=== PATIENT | female | born 1990 | race African-American/Black ===

== ENCOUNTER 2017-07-10 07:12 | Day surgery (SDC) | payer MEDICARE ==
[2017-07-10] MEDS ORDERED: RENVELA800 MG PO (07:44)
[2017-07-10] MEDS ORDERED: LASIX80 MG PO (07:45)
[2017-07-10 08:07] VITALS: BMI 65.4
[2017-07-10 08:18] LABS: BASOPHILS 0.5 % (0-2); EOSINOPHILS 1.3 % (0-7); HEMATOCRIT 33.9 % (36.0-48.0); HEMOGLOBIN 10.4 g/dL (12-16); IMMATURE GRANULOCYTES 0.4 % (0-5); LYMPHOCYTES 32.7 % (15-50); MCH 29.8 pg (26.0-34.0); MCHC 30.7 g/dL (31.0-37.0); MCV 97.1 fL (80.0-100.0); MEAN PLATELET VOLUME 10.3 fL (7.4-10.4); MONOCYTES 7.5 % (2-11); NEUTROPHILS 57.6 % (40-80); PLATELET COUNT 279 10x3/uL (130-400); RBC 3.49 10x6/uL (4.00-5.40); RDW 18.8 % (11.5-14.5); WBC 10.9 10x3/uL (4.8-10.8)
[2017-07-10 08:26] LABS: APTT 27.4 SECONDS (22.8-39.4); INR 1.01 (0.85-1.17); PROTIME 13.1 SECONDS (11.6-15.0)
[2017-07-10 08:29] LABS: ANION GAP 14.3 mmol/L (8-16); CALCIUM 9.9 mg/dL (8.5-10.1); CARBON DIOXIDE 27.4 mmol/L (21.0-32.0); CREATININE - SERUM 8.1 mg/dL (0.6-1.3); POTASSIUM - SERUM 3.7 mmol/L (3.5-5.1)
[2017-07-10 08:30] LABS: HCG SERUM NEGATIVE (NEGATIVE)
[2017-07-10] MEDS ORDERED: HYDROCODON-ACE1 EAC7 PO (14:01)
--- NOTE | 2017-07-10 16:08 | NUR ---
1600 VERBAL REPORT TO NISH MOULTON R.N.. SERVED FULL LIQUID ADA RENAL DIET. Omari BEY R.N.
--- NOTE | 2017-07-13 08:51 | OP ---
PATIENT NAME: BARB SANCHEZ MEDICAL RECORD: [id number] :88 LOCATION:[facility] ADMISSION DATE: SURGEON: KOLBY ZUNIGA MD DATE OF OPERATION: 07/10/2017 REFERRING PHYSICIANS: Dr. Raymond and Dr. Franz, both nephrologists at [facility] in [place], [place]. PREOPERATIVE DIAGNOSES: End-stage renal disease, on chronic hemodialysis with multiple dialysis access failures and super morbid obesity. POSTOPERATIVE DIAGNOSES: End-stage renal disease, on chronic hemodialysis with multiple dialysis access failures and super morbid obesity. OPERATION PERFORMED: Implantation of a left arm brachial artery to axillary vein ProCol AV graft. SURGEON: Kolby Zuniga MD ANESTHESIA: General with LMA per RAILWAY ENGINEER. PREOPERATIVE NOTE: Ms. Sanchez is a super morbidly obese 27-year-old black female with a BMI of about 70. She is on chronic hemodialysis and has a problem with access. She is presently dialyzing with a tunneled dialysis catheter. I have advised that she should probably have a graft implanted rather than continue to attempt to create AV fistulas, which because of her super morbid obesity was going to be a problem to develop an adequate length of fistula available for use. I recommended a ProCol biologic AV graft in the left arm. She is brought to the operating room for that today. DESCRIPTION OF PROCEDURE: Under general anesthesia in supine position, the patient was prepped and draped in a sterile manner. She was examined with ultrasound, and the axillary and basilic veins noted to be very suitable for use and the brachial artery likewise suitable. Two incisions were made, one just below the axillary fold and the axillary and the brachial vein exposed and controlled with Silastic loops. Actually, the anastomosis was subsequently done to the axillary vein itself. Through the distal incision, the brachial artery above the antecubital space was exposed and controlled with Silastic loops. I used a 6-mm diameter ProCol biologic graft. The graft was rinsed with heparinized saline and the bevelled inflow end was then anastomosed end-to-side to the brachial artery. Regional heparinization was utilized and the anastomosis performed with running 6-0 Prolene. I created a subcutaneous tunnel between the 2 incisions and pulled the ProCol graft through the tunnel placing it as physically close to the surface as I possibly could. This required one small counterincision. The patient did have some clots form, which necessitated the use of a Johnny catheter to remove them from the graft and the brachial artery, and I went ahead and gave 3000 units of heparin systemically and additionally flushed the graft on the brachial artery with heparinized saline. The axillary vein was opened and bevelled and the graft was shortened and beveled and anastomosed end-to-side to the axillary vein with running 6-0 Prolene. Upon completion of the anastomosis and release of the occluding loops and clamps, excellent flow was immediately established in the graft, which is palpable beneath the skin along its course in the subcutaneous tunnel and I believe can provide her with hopefully reliable long-term access. The graft and axillary vein were examined with handheld Doppler and good continuous pulsatile OPERATIVE REPORT [id number] BARB SANCHEZ flow was documented. Likewise good continuous pulsatile flow was present in the proximal brachial artery and good pulsatile arterial flow in the distal brachial artery was present as well. The wounds were irrigated with gentamicin solution. Ancef was not used as SHE IS ALLERGIC TO PENICILLIN. Also, the patient was given vancomycin as a preoperative prophylactic antibiotic. The wounds were infiltrated with 0.25% Marcaine without epinephrine and closed in layers with interrupted inverted 3-0 Vicryl and running intracuticular 4-0 Monocryl and Dermabond glue. The incisions were dressed with Maxorb Ag, Tegaderm, and Cavilon skin prep, and she was awakened and with good functioning new AV graft taken to the recovery room. Blood loss was trivial and unreplaced. All sponges, instruments, and needles were accounted for. No drain was used. No surgical specimen was submitted for histopathology. PLAN: I will see the patient back in my office Sunday of next week, that is a week from today. She is given a prescription for Wilcox 5/325 one p.o. every 4 hours p.r.n. pain, 14 tablets, no refills. I hope that the graft will remain patent and that her swelling and ecchymosis will not be too severe. If her graft is palpable and can be accessed with confidence, then it should be able to be used in 2-3 weeks. Her tunneled catheter could be removed soon after that. TRANSINT:[id number] Voice Confirmation ID: [id number] DOCUMENT ID: [id number] CC: Dr. Nia Raymond and Dr. Guerrero Franz [facility] KOLBY ZUNIGA MD at 0851 CC: DR. NIA RAYMOND [id number] DICTATION DATE: 07/10/171426 [employer]: 07/10/17 1634 [facility] [place] 07/10/17 [facility] [address] [id number]
== END 2017-07-10 16:50 | disposition home or self-care (01) ==
LOC: D.OPS 07:12
PROVIDERS: Surgery
DX: I12.0 Hypertensive chronic kidney disease with stage 5 chronic kidney disease or end stage renal disease (principal); N18.6 End stage renal disease; Z99.2 Dependence on renal dialysis; K21.9 Gastro-esophageal reflux disease without esophagitis; E66.01 Morbid (severe) obesity due to excess calories; Z68.44 Body mass index [BMI] 60.0-69.9, adult; Z01.812 Encounter for preprocedural laboratory examination

== ENCOUNTER 2018-03-05 09:12 | Day surgery (SDC) | payer MEDICARE ==
[~2018-03-05] VITALS: Ht 172.7 cm; Wt 200.5 kg
--- NOTE | ~2018-03-05 | OP ---
PATIENT NAME: BARB SANCHEZ MEDICAL RECORD: [id number] :88 LOCATION:DAbelOPS ADMISSION DATE: SURGEON: KOLBY ZUNIGA MD DATE OF OPERATION: 03/05/2018 REFERRING PHYSICIAN: Dr. Goodman and Dr. Claudio of the [facility] in [place]. PREOPERATIVE DIAGNOSIS: Mechanical complication of left arm AV graft with inability to reliably access due to depth of the graft and the extent of surrounding adipose tissue. OTHER DIAGNOSES: End-stage renal disease, dependence on hemodialysis, diabetes, hypertension, and super morbid obesity. OPERATION PERFORMED: Revision without thrombectomy by conversion to a brachial to translocated cephalic vein AV fistula, left upper extremity. SURGEON: Kolby Zuniga MD ANESTHESIA: General endotracheal anesthesia. PREOPERATIVE NOTE: Ms. Sanchez is a very nice 27-year-old super morbidly obese -[place] female from [place] who with a BMI of 67, is on chronic hemodialysis with a catheter, I implanted a ProCol biologic AV graft in the left arm brachial artery to axillary vein Shelley configuration back in July of last year. That graft remains patent and a recent angiogram reveals no vascular obstructions or other complications, yet the graft cannot be successfully accessed without extravasation, at least 2 attempts to do so have been failures and the reason in my opinion is that the graft is simply too deep to be able to palpate it. Considering the extent and depth of surrounding adipose tissue, it is like trying to feel and place a needle through a worm in the middle of a large down feather pillow. I believe that if we can superficialize or translocate this vein or rather this graft up into a more immediate subcutaneous level that it should be more easily palpable and hopefully will be accessible and provide some reliable access. Her contact time with this TDC is much too long. I would like to see her be able to have that removed soon. Also, we have talked to the patient about peritoneal dialysis and I am hopeful that she may consider that yet. DESCRIPTION OF PROCEDURE: With the patient under general endotracheal anesthesia, she was placed in supine position, prepped and draped in a sterile manner. It was difficult for the kitchen porter to keep the patient at a deep enough level of anesthesia. Despite the use of paralytics and inhalation of gas, the operation did not last long and I believe that the paralytic dose needed to be higher. This is just a precautionary note for future reference. I made an incision over the arm from the scar from her counterincision in about the mid humeral level down to the antecubital space. I exposed the underlying graft very easily. The only problem being a number of enlarged subcutaneous veins with probably venous hypertension and some brisk hemorrhage. At one point, I thought that I had perhaps inadvertently cut the graft all, the bleeding was so forceful, however, this proved not to be the case. The gusher was a subcutaneous vein adjacent to the graft. I do not have an explanation for this upper extremity venous hypertension, especially considering her recent OPERATIVE REPORT [id number] BARB SANCHEZ angiogram at [facility] revealed no venous obstruction or other abnormality. The graft is a 6 mm diameter ProCol porcine mesenteric vein origin. It was palpably soft and smooth without calcifications or other signs of breakdown or complication. I obtained hemostasis with electrocautery and suture ligatures of 3-0 Vicryl. The subcutaneous tissues were then approximated deep to the graft with a row of interrupted inverted 3-0 Vicryl and the skin was then closed over this with a running 4-0 Monocryl intracuticular suture. Two simple sutures were also needed to approximate the skin margins and the sutures should be removed in about a week. The incision was additionally sealed and closed with Dermabond glue and dressed with Maxorb Ag, Tegaderm, and Cavilon skin prep. The patient was awakened and extubated and taken to the recovery room in stable condition. Blood loss during the operation was about 50 cc, all from the subcutaneous veins in the left arm. None of course was replaced. All sponges, instruments, and needles were accounted for. No drain was used and no surgical specimen was submitted for histopathology. The patient will be discharged to home today. I have left a prescription for tramadol 50 mg tablets, 20 of them, she can take 1 or if needed 2, as often as every 4 hours p.r.n. pain and she may cautiously for short periods of time off and on use cold or ice on the incision area. I will plan to see her back in my office in 2 weeks and I am anticipating that the AV graft can be accessed in approximately a month. She is in the meantime to continue all of her same home medications, diet, activities, and routine dialysis schedule. TRANSINT:[id number] Voice Confirmation ID: [id number] DOCUMENT ID: [id number] KOLBY ZUNIGA MD at 0847 CC: [id number] DICTATION DATE: 03/05/18 1537 WOOD INSPECTOR: 03/05/[address] [place] [address] 03/05/18 [id number] [place] [address]
[~2018-03-05 09:12] MED LIST: HYDROCODON-ACE1 EAC7 PO; LASIX80 MG PO; RENVELA800 MG PO
[2018-03-05 09:43] LABS: BASOPHILS 0.5 % (0-2); EOSINOPHILS 1.5 % (0-7); HEMATOCRIT 39.6 % (36.0-48.0); HEMOGLOBIN 12.4 g/dL (12-16); IMMATURE GRANULOCYTES 0.3 % (0-5); LYMPHOCYTES 41.3 % (15-50); MCH 30.4 pg (26.0-34.0); MCHC 31.3 g/dL (31.0-37.0); MCV 97.1 fL (80.0-100.0); MEAN PLATELET VOLUME 10.7 fL (7.4-10.4); MONOCYTES 7.8 % (2-11); NEUTROPHILS 48.6 % (40-80); PLATELET COUNT 235 10x3/uL (130-400); RBC 4.08 10x6/uL (4.00-5.40); RDW 17.4 % (11.5-14.5); WBC 9.6 10x3/uL (4.8-10.8)
[2018-03-05 09:53] LABS: APTT 27.4 SECONDS (22.8-39.4); INR 1.01 (0.85-1.17); PROTIME 12.9 SECONDS (11.6-15.0)
[2018-03-05 10:14] LABS: ANION GAP 15.6 mmol/L (8-16); CALCIUM 10.1 mg/dL (8.5-10.1); CARBON DIOXIDE 27.3 mmol/L (21.0-32.0); CREATININE - SERUM 7.4 mg/dL (0.6-1.3); POTASSIUM - SERUM 3.9 mmol/L (3.5-5.1)
[2018-03-05] MEDS ORDERED: COZAAR50 MG PO (10:21)
[2018-03-05] MEDS ORDERED: BAYER CHEWABLE81 MG PO (10:22)
[2018-03-05 10:28] VITALS: Ht 172.7 cm; Wt 200.5 kg
[2018-03-05 10:38] LABS: HCG SERUM NEGATIVE (NEGATIVE)
[2018-03-05] MEDS ORDERED: ULTRAM50 MG PO (15:16)
== END 2018-03-05 17:30 | disposition home or self-care (01) ==
LOC: D.OPS 09:12
PROVIDERS: Anesthesiology; Internal Medicine Nephrology
DX: T82.590A Other mechanical complication of surgically created arteriovenous fistula, initial encounter (principal); E11.22 Type 2 diabetes mellitus with diabetic chronic kidney disease; I12.0 Hypertensive chronic kidney disease with stage 5 chronic kidney disease or end stage renal disease; N18.6 End stage renal disease; Z99.2 Dependence on renal dialysis; E66.01 Morbid (severe) obesity due to excess calories; Z68.44 Body mass index [BMI] 60.0-69.9, adult; Z01.812 Encounter for preprocedural laboratory examination

== ENCOUNTER 2018-06-30 17:05 | Inpatient (IN) | payer MEDICARE ==
[~2018-06-30] VITALS: Ht 172.7 cm; Wt 203.2 kg
[~2018-06-30 17:05] MED LIST changes: +BAYER CHEWABLE81 MG PO; +COZAAR50 MG PO; +ULTRAM50 MG PO
[2018-06-30 20:34] VITALS: BP 152/94
[2018-06-30 23:56] VITALS: BP 149/87; BMI 67.5
[2018-07-01 04:00] VITALS: BP 144/81
[2018-07-01 06:28] LABS: INR 1.06 (0.85-1.17); PROTIME 13.4 SECONDS (11.6-15.0)
[2018-07-01 06:37] LABS: ANION GAP 16.4 mmol/L (8-16); CALCIUM 9.1 mg/dL (8.5-10.1); CARBON DIOXIDE 27.7 mmol/L (21.0-32.0); CREATININE - SERUM 9.7 mg/dL (0.6-1.3); POTASSIUM - SERUM 4.1 mmol/L (3.5-5.1)
[2018-07-01 07:03] LABS: BASOPHILS 0.4 % (0-2); EOSINOPHILS 1.7 % (0-7); HEMATOCRIT 31.6 % (36.0-48.0); HEMOGLOBIN 9.9 g/dL (12-16); IMMATURE GRANULOCYTES 0.3 % (0-5); LYMPHOCYTES 27.8 % (15-50); MCH 30.5 pg (26.0-34.0); MCHC 31.3 g/dL (31.0-37.0); MCV 97.2 fL (80.0-100.0); MEAN PLATELET VOLUME 11.3 fL (7.4-10.4); MONOCYTES 9.3 % (2-11); NEUTROPHILS 60.5 % (40-80); PLATELET COUNT 248 10x3/uL (130-400); RBC 3.25 10x6/uL (4.00-5.40); RDW 17.2 % (11.5-14.5); WBC 10.2 10x3/uL (4.8-10.8)
[2018-07-01 08:38] VITALS: BP 136/88
[2018-07-01 12:15] VITALS: BP 153/75
[2018-07-01 12:17] VITALS: Ht 172.7 cm; Wt 203.2 kg
[2018-07-01 14:17] LABS: HCG SERUM NEGATIVE (NEGATIVE)
[2018-07-01 17:26] VITALS: BP 136/84
[2018-07-01 22:06] VITALS: BP 143/72
[2018-07-02 00:47] VITALS: BP 114/61
[2018-07-02 05:23] VITALS: BP 111/80
[2018-07-02 08:30] VITALS: BP 127/858
[2018-07-02 11:30] VITALS: BP 146/93
[2018-07-02] MEDS ORDERED: PLAVIX75 MG PO (13:05)
== END 2018-07-02 18:32 | disposition home or self-care (01) | DRG 252 ==
LOC: D.ER 17:05 → D.M2 20:35
PROVIDERS: Anesthesiology; Surgery
PROC: 037834Z Dilation of Left Brachial Artery with Drug-eluting Intraluminal Device, Percutaneous Approach (ICD-10-PCS; 2018-07-01)
PROC: 05783DZ Dilation of Left Axillary Vein with Intraluminal Device, Percutaneous Approach (ICD-10-PCS; 2018-07-01)
PROC: 3E03317 Introduction of Other Thrombolytic into Peripheral Vein, Percutaneous Approach (ICD-10-PCS; 2018-07-01)
PROC: 5A1D70Z Performance of Urinary Filtration, Intermittent, Less than 6 Hours Per Day (ICD-10-PCS; 2018-07-01)
PROC: B51W1ZZ Fluoroscopy of Dialysis Shunt/Fistula using Low Osmolar Contrast (ICD-10-PCS; principal; 2018-07-01 13:30)
DX: T82.868A Thrombosis due to vascular prosthetic devices, implants and grafts, initial encounter (principal); N18.6 End stage renal disease; I12.0 Hypertensive chronic kidney disease with stage 5 chronic kidney disease or end stage renal disease; Z68.44 Body mass index [BMI] 60.0-69.9, adult; Y83.8 Other surgical procedures as the cause of abnormal reaction of the patient, or of later complication, without mention of misadventure at the time of the procedure; E11.22 Type 2 diabetes mellitus with diabetic chronic kidney disease; Z99.2 Dependence on renal dialysis; E66.01 Morbid (severe) obesity due to excess calories

== ENCOUNTER 2019-08-15 14:47 | Inpatient (IN) | payer MEDICARE ==
[~2019-08-15] VITALS: Ht 172.7 cm; Wt 82.4 kg
[~2019-08-15 14:47] MED LIST changes: +PLAVIX75 MG PO
[2019-08-15 15:44] LABS: BASOPHILS 0.3 % (0-2); HEMATOCRIT 38.7 % (36.0-48.0); HEMOGLOBIN 12.6 g/dL (12-16); IMMATURE GRANULOCYTES 0.8 % (0-5); LYMPHOCYTES 28.2 % (15-50); MCH 33.2 pg (26.0-34.0); MCHC 32.6 g/dL (31.0-37.0); MCV 102.1 fL (80.0-100.0); MEAN PLATELET VOLUME 11.6 fL (7.4-10.4); MONOCYTES 6.4 % (2-11); NEUTROPHILS 63.3 % (40-80); PLATELET COUNT 239 10x3/uL (130-400); RBC 3.79 10x6/uL (4.00-5.40); RDW 18.1 % (11.5-14.5); WBC 11.5 10x3/uL (4.8-10.8)
[2019-08-15 15:50] LABS: ANION GAP 16.1 mmol/L (8-16); CALCIUM 9.9 mg/dL (8.5-10.1); CARBON DIOXIDE 25.5 mmol/L (21.0-32.0); CREATININE - SERUM 11.7 mg/dL (0.6-1.3); POTASSIUM - SERUM 3.6 mmol/L (3.5-5.1)
[2019-08-15 15:56] LABS: APTT 27.4 SECONDS (22.8-39.4); INR 1.05 (0.85-1.17); PROTIME 13.2 SECONDS (11.6-15.0)
[2019-08-15 15:57] LABS: ALBUMIN 3.4 g/dL (3.4-5.0); BILIRUBIN - TOTAL 0.48 mg/dL (0.2-1.3); PROTEIN - SERUM 8.7 g/dL (6.4-8.2)
--- NOTE | 2019-08-15 19:25 | NUR ---
REPORT TO SHELDON AT EXT 2151. PT TO BE ADMITTED TO ROOM 2139. REORT TO HETAL MITCHELL IN ER FOR SHIFT CHANGE.
[2019-08-15] MEDS ORDERED: TOPROL XL50 MG PO (22:31)
--- NOTE | 2019-08-15 22:48 | NUR ---
RECEIVED VIA WHEELCHAIR FROM ER @2034, LUZ MARIA PRINCE, A&O. MEDS AND HISTORY COMPLETE, EKG COMPLETE, CONSENTS SIGNED AND PLACED IN CHART, PROVIDED A SANDWICH AND DRINK, EXPLAINED WILL BE NPO AFTER MIDNIGHT, BED IS LOW, SRX2, CALL LIGHT IN REACH, WILL CONTINUE PLAN OF CARE
[2019-08-15 23:42] VITALS: BP 180/90; BMI 66.4
[2019-08-16 00:01] VITALS: BP 128/77
--- NOTE | 2019-08-16 04:00 | NUR ---
I have reviewed this patient and I concur with the Shift Assessment completed by the Licensed Practical Nurse today this shift.
[2019-08-16 04:25] VITALS: BP 154/85
[2019-08-16 06:04] LABS: BASOPHILS 0.5 % (0-2); EOSINOPHILS 1.1 % (0-7); HEMATOCRIT 35.4 % (36.0-48.0); HEMOGLOBIN 11.5 g/dL (12-16); IMMATURE GRANULOCYTES 0.5 % (0-5); LYMPHOCYTES 29.6 % (15-50); MCH 33.3 pg (26.0-34.0); MCHC 32.5 g/dL (31.0-37.0); MCV 102.6 fL (80.0-100.0); MEAN PLATELET VOLUME 10.8 fL (7.4-10.4); NEUTROPHILS 59.3 % (40-80); PLATELET COUNT 217 10x3/uL (130-400); RBC 3.45 10x6/uL (4.00-5.40); RDW 18.7 % (11.5-14.5); WBC 11.3 10x3/uL (4.8-10.8)
[2019-08-16 06:17] LABS: ANION GAP 18.8 mmol/L (8-16); CALCIUM 9.5 mg/dL (8.5-10.1); CARBON DIOXIDE 22.6 mmol/L (21.0-32.0); CREATININE - SERUM 12.6 mg/dL (0.6-1.3)
[2019-08-16 06:18] LABS: POTASSIUM - SERUM 4.4 mmol/L (3.5-5.1)
[2019-08-16 06:33] LABS: INR 1.04 (0.85-1.17); PROTIME 13.1 SECONDS (11.6-15.0)
--- NOTE | 2019-08-16 07:33 | NUR ---
PATIENT IS AWAKE AND ALERT, SHE IS SITTING UP IN BED. ALL PREPERATION HAS BEEN COMPLETED FOR SURGICAL PREPARATION. SHE IS GOING TO HAVE HER CLOTTED FISTULA WORKED ON THIS MORNING. THERE IS VANCOMYCIN ORDERED A PREOP MED, WITH NO TIME GIVEN TO ADMINISTER. I WILL PULL THE MEDICATION AND SEND WITH PATIENT TO SURGERY. CONSENTS ARE SIGNED, EKG DONE, BATH COMPLETE, AND SHE HAS BEEN NPO SINCE MIDNIGHT.
[2019-08-16 08:39] VITALS: BP 151/86
--- NOTE | 2019-08-16 08:57 | NUR ---
PATIENT IS IN SURGERY AT THIS TIME.
--- NOTE | 2019-08-16 09:31 | NUR ---
DID NOT USE SED DURING PROCEDURE DUE TO PAST MEDICAL HYSTORY OF DVT PER PRODICAL
--- NOTE | 2019-08-16 09:35 | NUR ---
WHEN SURGERY CAME TO COLLECT THIS PATIENT FOR SURGERY I TOLD THEM ABOUT THE PREOP ORDER FOR VANCOMYCIN AND ASKED IF I COULD PULL IT FOR THEM TO TAKE WITH THEM AND GIVE, AND THEY SAID NO, THEY WILL PULL IT AND GIVE IT WHEN THEY ARE DOWN THERE.
[2019-08-16 10:58] VITALS: Ht 172.7 cm; Wt 82.4 kg
--- NOTE | 2019-08-16 13:04 | NUR ---
MEETS ANESTHESIA DISCHARGE CRITERIA
--- NOTE | 2019-08-16 13:30 | NUR ---
PATIENT HAS JUST RETURNED FROM SURGERY AND SHE IS AWAKE AND ORIENTED. SHE IS A LITTLE LETHARGIC. SHE HAS A LUNCH AND WANTS IT WHEN SHE WAKES UP A LITTLE. SHE HAS HAD A FEW SIPS OF TEA. THERE IS A HEMOSPLIT THAT WAS PLACED BY DR ZUNIGA TODAY IN THE LEFT SUBCLAVIAN. HE WAS NOT ABLE TO REPAIR THE AV FISTULA. THERE IS A SMALL DRESSING OVER THE SITE WHERE HE ATTEMPTED TO REPAIR THE FISTULA. THE DRESSING OVER THE HEMOSPLIT IS CLEAN DRY AND INTACT. PATIENT WILL BE GOING TO DIALYSIS SOON.
[2019-08-16 16:44] VITALS: BP 118/56
[2019-08-16 16:50] LABS: APPEARANCE CLOUDY (CLEAR); COLOR BROWN (YELLOW); NITRITE NEGATIVE (NEGATIVE); PROTEIN 2+ mg/dL (NEGATIVE)
[2019-08-16 16:51] LABS: BILIRUBIN NEGATIVE (NEGATIVE); GLUCOSE NEGATIVE (NEGATIVE); KETONE NEGATIVE (NEGATIVE); UROBILINOGEN NORMAL (NORMAL)
[2019-08-16 16:53] LABS: RED CELLS - URINE >50 /hpf (0-5); WHITE CELLS - URINE 25-50 /hpf (NEGATIVE)
[2019-08-16 16:54] LABS: BACTERIA MANY /hpf (NEGATIVE)
--- NOTE | 2019-08-16 17:11 | NUR ---
TELEMETRY IS IN OR AND NEWS REEL CAMERAMAN CAN NOT GET IT BACK.
--- NOTE | 2019-08-16 17:13 | NUR ---
PATIENT IS ON HER CYCLE AND SO THE URINE SAMPLE WAS RED, AND HAD SOME MENSIES IN IT. EVEN THOUGH THE PATIENT USED A PACK OF DAVY WIPES BEFORE GIVING THE SAMPLE.
--- NOTE | 2019-08-16 17:32 | NUR ---
PATIENT IS IN DIALYSIS NOW. SHE WENT DOWN BY BED. LINEN CHANGE COMPLETE. ESE SHARMA IS GETTING THE TELEMETRY FROM SURGERY FOR US.CALLED LAB AND LET THEM KNOW THAT THIS PATIENT IS ON HER CYCLE AND THAT IS WHY THE SAMPLE IS CONTAMINATED.
--- NOTE | 2019-08-16 19:10 | NUR ---
BEDSIDE REPORT RECEIVED FROM DAY SHIFT, PT CARE ASSUMED. PT IN DIALYSIS, AT THIS TIME. WROTE NAME ON BOARD.
[2019-08-16 20:00] VITALS: BP 98/65
--- NOTE | 2019-08-16 21:45 | NUR ---
NIGHT TIME MEDS ADMINISTERED, PER ORDER. PT REQUESTING SNACK, PROVIDED SNACK FOR PT. DENIES ANY OTHER NEEDS AT THIS TIME. BED IN LOWEST POSITION, SR X2, CALL LIGHT WITHIN REACH. WILL CONTINUE TO MONITOR.
[2019-08-17] VITALS: BP 139/50
[2019-08-17 04:00] VITALS: BP 129/61
--- NOTE | 2019-08-17 07:30 | NUR ---
A/A/OX4. SITTING UP IN ROOM WATCHING TV. DENIES ANY PAIN OR DISCOMFORT AND NO REQUESTS VOICED. HS IN PLACE TO LEFT SUBCLAVIAN WITH DRESSING C/D/I. PT IS UP AND ABOUT AD FARHAD IN ROOM. ASSESSMEENT COMPLETED AND WILL CONTINUE POC.
[2019-08-17 08:13] LABS: BASOPHILS 0.3 % (0-2); EOSINOPHILS 2.2 % (0-7); HEMATOCRIT 31.3 % (36.0-48.0); HEMOGLOBIN 10.2 g/dL (12-16); IMMATURE GRANULOCYTES 0.4 % (0-5); LYMPHOCYTES 23.2 % (15-50); MCH 33.8 pg (26.0-34.0); MCHC 32.6 g/dL (31.0-37.0); MCV 103.6 fL (80.0-100.0); MEAN PLATELET VOLUME 10.8 fL (7.4-10.4); MONOCYTES 10.3 % (2-11); NEUTROPHILS 63.6 % (40-80); PLATELET COUNT 227 10x3/uL (130-400); RBC 3.02 10x6/uL (4.00-5.40); RDW 18.7 % (11.5-14.5); WBC 12.4 10x3/uL (4.8-10.8)
[2019-08-17 08:14] LABS: ANION GAP 15.8 mmol/L (8-16); CALCIUM 9.1 mg/dL (8.5-10.1); CREATININE - SERUM 10.8 mg/dL (0.6-1.3); POTASSIUM - SERUM 3.8 mmol/L (3.5-5.1)
[2019-08-17 09:00] VITALS: BP 104/52; BP 104/56
--- NOTE | 2019-08-17 14:03 | NUR ---
DISCHARGE INSTRUCTIONS REVIEWED WITH PT AND VERBALIZES UNDERSTANDNG WITH NO QUESTIONS. SL REMOVED WITH CATH TIP INTACT. LEFT FLOOR VIA W/C WITH ALL PERSONAL BELONGINGS AND LEFT FACILTY VIA PRIVATE VEHICLE WITH S-I-L
--- NOTE | 2019-08-17 14:14 | NUR ---
REVIEWED ASSESSMENT COMPLETED BY IN HOME BABY SITTER AND I CONCUR.
--- NOTE | 2019-08-18 09:51 | MORECARE ---
CASE MANAGEMENT DISCHARGE SUMMARY PATIENT: BARB SANCHEZ UNIT: [id number] ADM DATE: 08/15/19 AGE: 29 : 88 SEX: F ROOM/BED: D.2139 AUTHOR: JENNIFER MCGRAW PHYSICIAN: REFERRING PHYSICIAN: MARKOS LEMOS MD DATE OF SERVICE: 08/18/19 Discharge Plan Patient Name: BARB SANCHEZ [facility] [facility] 1990 Planned Disposition: Home Anticipated Discharge Date: 08/17/19 Discharge Date: 08/17/2019 Expected LOS: 2 Initial Reviewer: [email or web address] Initial Review Date: 08/18/2019 Generated: 08/18/19 10:51 am Patient Name: BARB SANCHEZ Page [phone] at 0951 All edits/amendments must be made on the electronic document DICTATION DATE: 08/18/19950 BUSINESS EDUCATION TEACHER: PEGGY 08/18/19950 RPT#: [id number] DC DATE:08/17/19 STATUS: DIS IN [facility] [address] [place] [address] END OF REPORT
== END 2019-08-17 14:55 | disposition home or self-care (01) | DRG 252 ==
LOC: D.ER 14:47 → D.M2 16:48
PROVIDERS: Family Medicine; Surgery; ADMIT Internal Medicine Nephrology; ATTEND Internal Medicine Nephrology
PROC: 05HN33Z Insertion of Infusion Device into Left Internal Jugular Vein, Percutaneous Approach (ICD-10-PCS; 2019-08-16)
PROC: B5141ZA Fluoroscopy of Left Jugular Veins using Low Osmolar Contrast, Guidance (ICD-10-PCS; 2019-08-16)
PROC: 5A1D70Z Performance of Urinary Filtration, Intermittent, Less than 6 Hours Per Day (ICD-10-PCS; 2019-08-16)
PROC: 03C83ZZ Extirpation of Matter from Left Brachial Artery, Percutaneous Approach (ICD-10-PCS; principal; 2019-08-16 07:05)
PROC: 03WY3JZ Revision of Synthetic Substitute in Upper Artery, Percutaneous Approach (ICD-10-PCS; 2019-08-16 07:05)
DX: T82.858A Stenosis of other vascular prosthetic devices, implants and grafts, initial encounter (principal); N18.6 End stage renal disease; I12.0 Hypertensive chronic kidney disease with stage 5 chronic kidney disease or end stage renal disease; Z68.44 Body mass index [BMI] 60.0-69.9, adult; Y83.9 Surgical procedure, unspecified as the cause of abnormal reaction of the patient, or of later complication, without mention of misadventure at the time of the procedure; E11.9 Type 2 diabetes mellitus without complications; E11.22 Type 2 diabetes mellitus with diabetic chronic kidney disease; Z99.2 Dependence on renal dialysis; E66.01 Morbid (severe) obesity due to excess calories

== ENCOUNTER 2019-11-18 06:55 | Day surgery (SDC) | payer MEDICARE ==
[~2019-11-18] VITALS: Ht 180.3 cm; Wt 196.9 kg
[~2019-11-18 06:55] MED LIST changes: +TOPROL XL50 MG PO
[2019-11-18 07:17] LABS: BASOPHILS 0.5 % (0-2); EOSINOPHILS 1.6 % (0-7); HEMATOCRIT 40.1 % (36.0-48.0); HEMOGLOBIN 13.1 g/dL (12-16); IMMATURE GRANULOCYTES 0.4 % (0-5); LYMPHOCYTES 32.7 % (15-50); MCH 33.1 pg (26.0-34.0); MCHC 32.7 g/dL (31.0-37.0); MCV 101.3 fL (80.0-100.0); MEAN PLATELET VOLUME 11.2 fL (7.4-10.4); MONOCYTES 9.2 % (2-11); NEUTROPHILS 55.6 % (40-80); PLATELET COUNT 218 10x3/uL (130-400); RBC 3.96 10x6/uL (4.00-5.40); RDW 13.9 % (11.5-14.5); WBC 10.2 10x3/uL (4.8-10.8)
[2019-11-18 07:31] LABS: HCG SERUM NEGATIVE (NEGATIVE)
[2019-11-18 07:38] LABS: CALCIUM 9.7 mg/dL (8.5-10.1); CARBON DIOXIDE 27.3 mmol/L (21.0-32.0); CREATININE - SERUM 8.7 mg/dL (0.6-1.3); POTASSIUM - SERUM 4.3 mmol/L (3.5-5.1)
[2019-11-18 07:42] LABS: INR 0.98 (0.85-1.17); PROTIME 12.9 SECONDS (11.6-15.0)
[2019-11-18 08:07] VITALS: Ht 180.3 cm; Wt 196.9 kg
--- NOTE | 2019-11-18 14:39 | NUR ---
DC INSTRUCTIONS GIVEN TO PT/FAMILY. STATE UNDERSTANDING. DC'D IV CATH FULLY INTACT.
--- NOTE | 2019-11-18 15:06 | NUR ---
PT LEFT UNIT VIA WC AT 1506
--- NOTE | 2019-11-20 17:35 | OP ---
PATIENT NAME: BARB SANCHEZ MEDICAL RECORD: [id number] :88 LOCATION:D.OPS ADMISSION DATE: SURGEON: KOLBY ZUNIGA MD DATE OF OPERATION: 11/18/2019 She was an outpatient when she was operated yesterday on 11/18/2019. REFERRING PHYSICIAN: Dr. Claudio. SURGEON: Kolby Zuniga MD ANESTHESIA: General per INDUSTRIAL CONTROLS TECHNICIAN. PREOPERATIVE DIAGNOSES: End-stage renal disease, dependence on hemodialysis, thrombosed left upper extremity AV graft, left axillary and subclavian vein stenosis, and super morbid obesity. REFERRING PHYSICIAN: Dr. Guerrero Claudio of [place]. PREOPERATIVE NOTE: Ms. Sanchez is a very nice 29-year-old super morbidly obese -Nepalese female patient from [place], [place]. She has end-stage renal disease and is on chronic hemodialysis, there Dr. Claudio is her metal painter. She has had multiple failed dialysis accesses. She had an AV graft in the left arm between the brachial artery and the axillary vein, which despite a stent in the venous anastomosis had thrombosed months ago and she has been dialyzing with a left internal jugular tunneled dialysis catheter. She has chronic swelling in her left arm, but would like to have her new access if possible placed in the left arm. She is brought to the operating room at this time to implant new AV graft going to the axillary vein above the area of previous stenting and thrombosis. DESCRIPTION OF PROCEDURE: Under anesthesia in supine position, the patient was prepped and draped in a sterile manner. I used duplex B-mode ultrasound and color flow to identify the axillary vein above the level of the thrombosed stent. Color flow facilitated differentiating between the vein and the artery at that level and with the existing postoperative changes. I consider this to be a hostile axilla and particularly because of her obesity and prior surgery, I did not want to do an open approach to the vein, but wished to do a sutureless stented anastomosis. I placed a needle and guidewire directly into the vein under ultrasound monitoring and images of that were retained on paper printouts and included in the patient's hospital chart to provide permanent documentation. A 9-Austrian introducer and 0.035 guidewire were inserted. Contrast was injected to visualize the axillary and subclavian veins. There was a stenosis of the axillary subclavian vein junction and distal subclavian vein and there appears to be a significant impairment of flow through the brachiocephalic vein and superior vena cava due to the existing tunneled dialysis catheters, which are positioned appropriately in the right atrium. I passed a guidewire and glide catheter through the right atrium and into what I thought was the inferior vena cava. Contrast injection though demonstrated to be the azygos vein. I repeated this maneuver several times and continued to pass the wire into the azygos vein and elected just to go ahead with that positioning. A guidewire exchange was done and an Amplatz wire inserted. I changed the 9-Austrian introducer for a 6-14 Austrian peel-away. I inserted 8 mm x 15 cm Viabahn stent through a Artegraft OPERATIVE REPORT [id number] BARB SANCHEZ which was properly Dunnegan prepared over the guidewire and through the peel-away sheath and under fluoroscopy, positioned the stent appropriately. The Artegraft was advanced over the stent and the stent was deployed and then the shaft removed and an 8-mm angioplasty balloon was inserted, which fully expanded the stent. The stent did reach up into the distal subclavian vein and treated the existing stenosis there. The overlap between the 15 cm long stent and to the Artegraft, I felt was insufficient and this was treated with yet another 9 mm diameter x 5 cm Viabahn stent. The stents were all fully expanded with the angioplasty balloon and I felt very comfortable with a resultant sutureless anastomosis. The graft and stents were flushed then with heparinized saline. Contrast injection then performed revealed satisfactory positioning and placement of the stent without any evidence of residual stenosis in the subclavian or axillary veins. The graft was then heparin locked, flush with heparin solution, clamped and capped. The patient was systemically heparinized with 5000 units of heparin. I used ultrasound guidance to identify the brachial artery at the antecubital space and made a transverse incision expecting really to find the PTFE graft at that level, but did not and further ultrasound exam demonstrated the graft to be higher over the distal humerus and another transverse incision was made and carried down to the PTFE graft. This proved to be a tapered type PTFE graft anastomosed to the brachial artery at that level about [address] about the junction of the middle and distal thirds of the humerus. The brachial artery was dissected from the surrounding structures and controlled with Silastic loops and the old graft was transected and then further debrided from the brachial artery. It proved necessary to perform a limited thromboendarterectomy of the vessel at that level. After removing all of the old PTFE graft. I then made a very superficial subcutaneous tunnel for the new Artegraft and this was made lateral to the prior PTFE AV graft. The artery was flushed proximally and distally with heparinized saline and the Artegraft was shortened and beveled and anastomosed end-to-side end of graft to side of artery with continuous running 6-0 Prolene. When the anastomosis was complete and the occluding loops and clamps released, excellent flow developed immediately within the new arteriovenous graft. All sites were hemostatic. The patient's heparin was not reversed. The wounds were irrigated with Ancef/gentamicin solution and infiltrated with 0.25% Marcaine without epinephrine. The wounds were closed with interrupted inverted 3-0 Vicryl and running intracuticular 4-0 Stratafix and Dermabond glue. They were dressed then with Maxorb Ag, Tegaderm, and Cavilon skin prep. At that point, the patient was awakened and in stable condition taken back to the recovery room with excellent flow in her new graft as demonstrated by repeat color flow duplex Doppler Ultrasound. Blood loss during the operation was between 250 and 300 cc due to bleeding during the insertion of the initial stent and Artegraft. This was not replaced intraoperatively, and the patient remained stable. Sponges, instruments, and needles were accounted for. No drain was used and no surgical specimen was submitted for histopathology. PLAN: The patient will be discharged to home today and she will resume or continue all of her same medications, diet and activities and present for dialysis via her catheter tomorrow. She will be back to see me in my office in about 2 weeks. I will plan to allow the new AV graft to be accessed in 2 weeks or after she sees me in the office. About 2 weeks after that her tunneled dialysis catheter should be removed and a fistulogram performed with preparation to treat any significant residual venous stenosis in the brachiocephalic vein or superior vena cava. OPERATIVE REPORT [id number] BARB SANCHEZ The patient will be placed on Plavix. TRANSINT:[id number] Voice Confirmation ID: [id number] DOCUMENT ID: [id number] CC: Dr. Guerrero [place], [facility] KOLBY ZUNIGA MD at 1735 CC: [id number] DICTATION DATE: 11/19/19939 INTERNET MARKETING ANALYST: 11/19/[address] [facility] [place] 11/18/19 [facility] [address] [place] [address]
== END 2019-11-18 15:06 | disposition home or self-care (01) ==
LOC: D.OPS 06:55
PROVIDERS: Surgery; ATTEND Internal Medicine Nephrology
DX: N18.6 End stage renal disease (principal); Z99.2 Dependence on renal dialysis; T82.868A Thrombosis due to vascular prosthetic devices, implants and grafts, initial encounter; E66.01 Morbid (severe) obesity due to excess calories

== ENCOUNTER → 2020-02-10 07:54 | Day surgery (SDC) | payer MEDICARE ==
[~2020-02-10] VITALS: Ht 177.8 cm; Wt 235.9 kg
[~2020-02-10 07:54] MED LIST changes: +ELIQUIS5 MG PO
[2020-02-10 08:44] LABS: HCG SERUM NEGATIVE (NEGATIVE)
[2020-02-10 08:48] LABS: ANION GAP 17.3 mmol/L (8-16); CALCIUM 9.8 mg/dL (8.5-10.1); CARBON DIOXIDE 23.4 mmol/L (21.0-32.0); CREATININE - SERUM 9.5 mg/dL (0.6-1.3); POTASSIUM - SERUM 3.7 mmol/L (3.5-5.1)
[2020-02-10 08:49] VITALS: Ht 177.8 cm; Wt 235.9 kg
[2020-02-10 09:50] LABS: HEMATOCRIT 34.7 % (36.0-48.0); HEMOGLOBIN 10.9 g/dL (12-16); LYMPHOCYTES 33.8 % (15-50); MCH 30.9 pg (26.0-34.0); MCHC 31.4 g/dL (31.0-37.0); MCV 98.3 fL (80.0-100.0); MEAN PLATELET VOLUME 11.1 fL (7.4-10.4); NEUTROPHILS 59.2 % (40-80); PLATELET COUNT 233 10x3/uL (130-400); RBC 3.53 10x6/uL (4.00-5.40); RDW 15.8 % (11.5-14.5)
[2020-02-10 10:08] LABS: INR 0.99 (0.85-1.17); PROTIME 13.1 SECONDS (11.6-15.0)
--- NOTE | 2020-02-10 15:36 | NUR ---
1509 IV DC'ED FROM HEMOSPT. FLUSHED BY Omari OLVERA R.N. SEE MAR. UP TO BATHROOM. AMBULATORY WITHOUT DIFFICULTY. Omari BEY R.N. 3212 DRESSES. AWAKE & ALERT. GIVEN DISCHARGE INSTRUCTIONS. CLINIC TO CALL RTC APPT. TO PATIENT. [facility] CALLED & GIVEN INSTRUCTIONS TO REMOVE SUTURE FROM AVG & USE AVG. PT INFORMED TO BEGIN USING ELIQUIS, PLAVIX, & ASA. PT VOICED UNDERSTANDING. TO PRIVATE CAR PER WHEELCHAIR BY STAFF. HOME WITH [facility]PM[facility]JAN. Omari BEY R.N.
--- NOTE | 2020-02-12 14:26 | OP ---
PATIENT NAME: BARB SANCHEZ MEDICAL RECORD: [id number] :88 LOCATION:[facility] ADMISSION DATE: SURGEON: KOLBY ZUNIGA MD DATE OF OPERATION: 02/10/2020 PREOPERATIVE DIAGNOSIS: Thrombosis left brachial axillary arteriovenous graft. ADDITIONAL DIAGNOSES: Hypertension, diabetes, morbid obesity, and end-stage renal disease and dependence on hemodialysis. POSTOPERATIVE DIAGNOSES: Thrombosis left brachial axillary arteriovenous graft. OPERATION PERFORMED: Percutaneous fistulogram with mechanical thrombolysis and angioplasty of stenosis in the JA segment and arterial anastomosis and a selective left brachial catheterization and left brachial arteriogram. SURGEON: Kolby Zuniga MD ANESTHESIA: General endotracheal per PRO[employer]OLS SCHEDULER. The patient's chief minister: Dr. Guerrero Franz of [place]. PREOPERATIVE NOTE: Ms. Sanchez is a 29-year-old super morbidly obese -[place] female with end-stage renal disease, on dialysis. She has an AV graft in her left arm which has been reworked couple of months ago and was then thrombosed and it has taken about 2 months to get her back into the operating room. She has been dialyzing with a left external jugular HemoSplit catheter. DESCRIPTION OF PROCEDURE: Under general endotracheal anesthesia in supine position, the patient was prepped and draped in sterile manner. 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 The graft was accessed using ultrasound guidance continuously in realtime and images were preserved on paper and placed in the patient's permanent medical record for documentation. Micropuncture technique was utilized and this led up to placement of two 7-Greenlandic introducer sheath in opposing directions. Body of the graft on the venous outflow tract was cleared of thrombus first. A guidewire and guide catheter were advanced into the subclavian vein and contrast injected to demonstrate patency. The patient was systemically heparinized at that point and I then used a 9 mm x 40 mm angioplasty balloon to dilate stenoses and macerate thrombus while simultaneously suctioning as the balloon catheter was brought back to the introducer with overlapping inflations. Contrast injection then demonstrated a residual thrombus which was cleared with an AngioJet catheter. There was no significant outflow stenosis. The arterial limb was then explored and a guidewire and glide catheter used to cross the arterial anastomosis into the brachial artery and selectively guide the guidewire proximal in the left brachial artery. Prethrombectomy study was necessary to demonstrate the absence of clots, thrombus, or obstruction in the brachial artery or its distal branches and the brachial artery was normal from axilla to the trifurcation and the radial and ulnar arteries were open and clean down into the hand. Over the wire, Johnny catheter was then used to clear thrombus from the arterial anastomosis and OPERATIVE REPORT [id number] BARB SANCHEZ segment. Subsequently, I identified a persistent stenosis in the arterial anastomosis of greater than 60-70% with a roughening and persistent 50% narrowing in the JA segment. This was treated by angioplasty with a 7-mm angioplasty balloon and completion angiography demonstrated a very satisfactory result. Repeat left brachial arteriogram demonstrated no evidence of embolism and good flow in the graft. There was no evidence of stenosis or obstruction within the proximal subclavian vein, brachiocephalic or superior vena cava associated with the presence of the dialysis catheter. The patient was given an additional 2000 units of heparin during the procedure for a total of 7000 units of heparin. No other anticoagulant was utilized other than dilute heparin and saline flushes. The 2 introducer sheaths were removed and hemostasis was obtained with [id number] 4-0 Prolene sutures and direct pressure. The 2 sites were dressed with Avitene Ultrafoam, Tegaderm, and Cavilon skin prep and the patient awakened and was taken to the recovery room in stable condition. There was no blood loss of consequence during the procedure. Sponges, instruments, and needles were accounted for and no drain was used. PLAN: Plan for the patient to continue Plavix 75 mg daily and aspirin 81 mg daily and I am placing her on Eliquis 5 mg b.i.d. I will plan to see her back in my office in the next 2 weeks and I would like to ask her dialysis unit to go ahead and start using her graft tomorrow. Plan for them to have the tunneled dialysis catheter removed in about 2 weeks if she has no trouble with her access. There was no blood loss during the procedure of consequence. Sponges, instruments, and needles were accounted for. No drain was used and no surgical specimen submitted. TRANSINT:[id number] Voice Confirmation ID: [id number] DOCUMENT ID: [id number] cc: Dr. Guerrero Franz [phone] [facility] [phone] KOLBY ZUNIGA MD at 1426 CC: [facility] [phone] DICTATION DATE: 02/10/20 [address] [facility] INSTRUMENT REPAIRER: 02/10/202121 [facility] 02/10/20 [facility] [address] [id number]
== END | disposition home or self-care (01) ==
LOC: D.OPS 07:54
PROVIDERS: Anesthesiology; ATTEND Surgery
DX: T82.868A Thrombosis due to vascular prosthetic devices, implants and grafts, initial encounter (principal); I12.0 Hypertensive chronic kidney disease with stage 5 chronic kidney disease or end stage renal disease; E11.22 Type 2 diabetes mellitus with diabetic chronic kidney disease; N18.6 End stage renal disease; Z99.2 Dependence on renal dialysis; K21.9 Gastro-esophageal reflux disease without esophagitis